=== PATIENT | female | born 1955 | race Hispanic/Latino ===

== ENCOUNTER → 2019-12-12 | Outpatient (CLI) | payer BC, MEDICARE | END | disposition home or self-care (01) | LOC: RAH 08:42 | PROVIDERS: ATTEND Internal Medicine Gastroenterology | DX: R10.11 Right upper quadrant pain (principal); R11.0 Nausea; R63.4 Abnormal weight loss | CPT/HCPCS: 78227; A9537 ==

== ENCOUNTER 2020-09-11 17:19 | Emergency (ER) | payer MEDICARE ==
[2020-09-11] MEDS ORDERED: TETRACAINE HCL 0.5% 4 ML OPHTH SOLN ONE (17:34)
[2020-09-11] MEDS ORDERED: FLUORESCEIN SODIUM 1 STRIP STRIP ONE (17:34)
[2020-09-11] MEDS ORDERED: KETOROLAC TROMETHAMINE OPTH 0.5% 5ML DROPS OU PRN (19:45)
== END 2020-09-11 19:48 | disposition home or self-care (01) ==
LOC: EDH 17:19
DX: H10.213 Acute toxic conjunctivitis, bilateral (principal)

== ENCOUNTER 2022-07-09 02:12 | Emergency (ER) | payer MEDICARE ==
[~2022-07-09] VITALS: Ht 165.1 cm; Wt 64.0 kg
[2022-07-09 02:36] LABS: BASOPHILS % (AUTO) 0.5 % (0.0-5.0); EOSINOPHILS % (AUTO) 3.7 % (0.0-8.0); HEMATOCRIT 42.6 % (36-48); MEAN CORPUSCULAR HGB CONC 34.5 g/dL (32.0-36.0); MEAN CORPUSCULAR VOLUME 95.5 fL (79-99); MONOCYTES % (AUTO) 6.7 % (3.0-13.0); NEUTROPHILS % (AUTO) 72.4 % (40.0-77.0); PLATELET COUNT (AUTO) 241 K/uL (130-400); RED BLOOD CELL COUNT(AUTO) 4.46 MIL/uL (4.00-5.50); RED CELL DISTRIBUTION WIDTH 12.2 % (11.0-15.5); WHITE BLOOD COUNT (AUTO) 13.3 K/uL (4.8-10.8)
[2022-07-09 02:44] LABS: CREATININE 0.7 mg/dL (0.5-1.5); POTASSIUM 3.5 mmol/L (3.5-5.1)
[2022-07-09] MEDS ORDERED: LIDOCAINE HCL 2% JELLY 5 ML TP SCH (04:30)
[2022-07-09 06:52] VITALS: BP 110/56
== END 2022-07-09 08:07 | disposition home or self-care (01) ==
LOC: EDH 02:12
DX: F10.10 Alcohol abuse, uncomplicated (principal); S00.81XA Abrasion of other part of head, initial encounter; Z87.19 Personal history of other diseases of the digestive system; W17.89XA Other fall from one level to another, initial encounter; Y93.89 Activity, other specified; Y92.89 Other specified places as the place of occurrence of the external cause; Y99.8 Other external cause status
CPT/HCPCS: 36415; 70450; 72125; 80048; 83690; 85025

== ENCOUNTER → 2025-03-21 | Outpatient (CLI) | payer MEDICARE ==
--- NOTE | 2025-03-21 11:44 | HMCIMG ---
Exam Type: FEMUR 2VW RIGHT Clinical Information: PAIN IN FEMUR, RIGHT Comparison: None Findings: The bone examination is unremarkable except for degenerative changes of the hip and the knee. No fractures or dislocations are seen. No radiopaque foreign bodies are noted. Soft tissues are preserved. IMPRESSION: No acute pathology.
== END | disposition home or self-care (01) ==
LOC: RAH 10:51
PROVIDERS: ATTEND Internal Medicine
DX: M25.551 Pain in right hip (principal)
CPT/HCPCS: 73552